=== PATIENT | female | born 1960 | race Caucasian/White ===

== ENCOUNTER → 2016-12-07 | Outpatient (CLI) | payer OTHER, MEDICAID ==
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
== END ==
PROVIDERS: ATTEND Family Medicine
DX: Z46.89 Encounter for fitting and adjustment of other specified devices (principal); Z87.820 Personal history of traumatic brain injury
CPT/HCPCS: 97162; G8978; G8979; G8980